=== PATIENT | male | born 1995 | race African-American/Black ===

== ENCOUNTER 2016-08-22 19:43 | Emergency (ER) | payer MEDICAID ==
[2016-08-22] MEDS ORDERED: NO HOME MEDICATION XX (20:03)
== END 2016-08-22 22:33 ==
LOC: EDMED 19:43
DX: S03.03XD Dislocation of jaw, bilateral, subsequent encounter (principal); F17.210 Nicotine dependence, cigarettes, uncomplicated; X58.XXXD Exposure to other specified factors, subsequent encounter
CPT/HCPCS: J2060; J2270

== ENCOUNTER 2016-08-22 23:12 | Emergency (ER) | payer MEDICAID ==
[~2016-08-22 23:12] MED LIST: NO HOME MEDICATION XX
== END 2016-08-23 00:05 ==
LOC: EDMED 23:12
PROC: 0RSDXZZ Reposition Left Temporomandibular Joint, External Approach (ICD-10-PCS; principal; 2016-08-22)
PROC: 0RSCXZZ Reposition Right Temporomandibular Joint, External Approach (ICD-10-PCS; 2016-08-22)
DX: S03.03XA Dislocation of jaw, bilateral, initial encounter (principal); X58.XXXA Exposure to other specified factors, initial encounter; Y93.89 Activity, other specified; Y92.019 Unspecified place in single-family (private) house as the place of occurrence of the external cause; Y99.8 Other external cause status

== ENCOUNTER 2016-08-23 00:26 | Emergency (ER) | payer MEDICAID | END 2016-08-23 01:39 | disposition T | LOC: EDMED 00:26 | PROC: 0RSDXZZ Reposition Left Temporomandibular Joint, External Approach (ICD-10-PCS; principal; 2016-08-23) | PROC: 0RSCXZZ Reposition Right Temporomandibular Joint, External Approach (ICD-10-PCS; 2016-08-23) | DX: M26.69 Other specified disorders of temporomandibular joint (principal) ==